=== PATIENT | female | born 2000 | race Caucasian/White ===

== ENCOUNTER 2022-07-30 09:04 | Outpatient (CLI) | payer BC ==
[2022-07-30] MEDS ORDERED: Magnevist 469MG/ML 20 ML VIAL ONE (15:29)
== END 2022-07-30 09:05 | disposition home or self-care (01) ==
LOC: CSHERS 09:04 → CSHMRI 09:05
PROVIDERS: ATTEND Emergency Medicine Emergency Medical Services
DX: R56.9 Unspecified convulsions (principal); R94.02 Abnormal brain scan; G93.9 Disorder of brain, unspecified
CPT/HCPCS: 70553; A9579